=== PATIENT | female | born 1995 | race Asian ===

== ENCOUNTER 2016-08-31 20:00 | Emergency (ER) | payer BC ==
[2016-08-31 21:02] VITALS: BP 134/72
[2016-08-31] MEDS ORDERED: Acetaminophen TAB* 325 MG PO ONE (22:27)
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
== END 2016-08-31 23:15 | disposition short-term general hospital (02) ==
LOC: UCEAST 20:00
DX: S91.331A Puncture wound without foreign body, right foot, initial encounter (principal); E03.9 Hypothyroidism, unspecified; G43.909 Migraine, unspecified, not intractable, without status migrainosus; F33.9 Major depressive disorder, recurrent, unspecified; Z91.011 Allergy to milk products; Z91.013 Allergy to seafood
CPT/HCPCS: 99212; G0463

== ENCOUNTER 2016-08-31 22:57 | Emergency (ER) | payer BC ==
[2016-09-01 02:49] LABS: Hematocrit 42 % (35-47); Hemoglobin 13.9 g/dl (12.0-16.0); Mean Corpuscular HGB Conc 33 g/dl (31-36); Mean Corpuscular Hemoglobin 29 pg (27-31); Mean Corpuscular Volume 86 fL (80-97); Mean Platelet Volume 7 um3 (7.4-10.4); Red Blood Count 4.85 10^6/ul (4.0-5.4); Red Cell Distribution Width 13 % (10.5-15); White Blood Count 7.8 10^3/ul (3.5-10.8)
[2016-09-01 02:57] LABS: Add Diff/Slide Review? Slide Review Added; Comments Flag Yes
[2016-09-01 03:06] VITALS: BP 98/67
[2016-09-01 03:10] LABS: BUN/Creatinine Ratio 16.4 (8-20); Calcium 9.2 mg/dL (8.6-10.3); EGFR African American 142.9 (>60); EGFR Non-African American 111.1 (>60)
[2016-09-01 03:13] LABS: Potassium 3.9 mmol/L (3.5-5.0)
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
--- NOTE | 2016-09-01 07:50 | RAD ---
INDICATION: Foreign body. TECHNIQUE: 2 views of the left foot were obtained. FINDINGS: The bones are in normal alignment. No fracture or repeat foreign body is seen. Joint spaces appear maintained. IMPRESSION: NO RADIOPAQUE FOREIGN BODY IS SEEN.
== END 2016-09-01 03:24 | disposition home or self-care (01) ==
LOC: ED 22:57
DX: M79.672 Pain in left foot (principal)
CPT/HCPCS: 36415; 80048; 85025; 99282

== ENCOUNTER 2016-09-19 07:24 | Emergency (ER) | payer BC ==
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
[2016-09-19 07:52] VITALS: BP 116/67
[2016-09-19] MEDS ORDERED: Lidocaine 2% VISCOUS* 15 ML UDC PO ONE (08:32)
[2016-09-19 13:59] LABS: EBV Response YES
[2016-09-19 14:14] LABS: Mono Internal Control QC Line Present
== END 2016-09-19 08:50 | disposition home or self-care (01) ==
LOC: UCEAST 07:24
DX: J02.8 Acute pharyngitis due to other specified organisms (principal); B97.89 Other viral agents as the cause of diseases classified elsewhere
CPT/HCPCS: 36415; 86308; 86664; 86665; 87651; 99212; G0463

== ENCOUNTER 2016-11-13 18:33 | Emergency (ER) | payer BC ==
[2016-11-13 19:00] VITALS: BP 136/72
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
== END 2016-11-13 19:36 | disposition home or self-care (01) ==
LOC: UCEAST 18:33
DX: R30.0 Dysuria (principal); R35.0 Frequency of micturition; Z32.02 Encounter for pregnancy test, result negative; Z91.011 Allergy to milk products; Z91.013 Allergy to seafood
CPT/HCPCS: 81003; 84702; 87491; 87591; 99211; G0463

== ENCOUNTER → 2016-11-15 04:50 | Emergency (ER) | payer BC ==
[2016-11-15 05:14] LABS: Urine Bilirubin Negative (Negative); Urine Glucose Negative (Negative); Urine Nitrite Negative (Negative)
[2016-11-15 05:26] LABS: Manual Entry Verification CAR0052; UR Preg Internal Control QC Line Present; UR Preg Kit Lot# 6090065
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
[2016-11-15 06:06] VITALS: BP 109/75
== END | disposition home or self-care (01) ==
LOC: ED 04:50
DX: R35.0 Frequency of micturition (principal)
CPT/HCPCS: 81003; 81025; 99282

== ENCOUNTER 2017-06-18 15:34 | Emergency (ER) | payer BC ==
--- OUTSIDE RECORDS SUMMARY | 2017-06-18 15:40 | XMS REPORT ---
:1995 External Reference #:[id number] Author Organization [facility] Address [address] [place] [address] Phone [phone] Care Team Providers Name Role Phone HCP given Primary Care Physician Unavailable Payers Type Date Identification Numbers Payment Provider Subscriber Commercial Effective: Policy Number: Sara Barlow Peace 2016 [id number] Ind/Ppo/Hmo/Pos Kenn PayID: [id number] [address] [address] [place] [address] Problems Date Description Provider Status Onset: 06/23/2016 Dysthymia Armond Starks M.D. Active Onset: 06/23/2016 Fredo thyroiditis Armond Starks M.D. Active Family History Date Family Member(s) Problem(s) Comments Father Atrial Fibrillation Father Cancer Brain Siblings 1 Social History Type Date Description Comments Work Status Not Currently Working Cigarette Use Denies Cigarette Use ETOH Use Denies alcohol use Exercise Type/Frequency Does not exercise Seat Belt/Car Seat Seat Belt Use - Yes Smoke Alarms Yes smoke alarm Currently Active Patient is currently not sexually active Contraceptive Methods None Age 1st [place] 18 Years Old # Partners in a Lifetime over 10 Allergies, Adverse Reactions, Alerts Date Description Reaction Status Severity Comments 05/14/2016 NKDA active 07/11/2016 Scallops active Medications Medication Date Status Form Strength Qnty SIG Indications Ordering Provider Imiquimod 02/01 Active Cream 5% 1Box apply to B08.1 Adarsh affected adam Leahy every M.DJordan 2 days for up to 16 wks. apply before bed and wash off after 6-10hrs; for molluscum Sertraline HCL 07/12 Active Tablets 100mg 135ta 1.5 tablets F34.1 willard bs by mouth Armond every day M.D. for mood Levothyroxine 04/19 Active Tablets 75mcg 90tab take 1 E06.3 Silcolester, Sodium s tablet by Armond, mouth every M.D. morning on empty stomach; for thyroid Cyanocobalamin 04/17 Active Solution 1000mcg/M 1unit inject 1cc Silcolester L s intramuscul Armond, griselda monthly M.D. Amitriptyline HCL 04/13 Active Tablets 10mg 180ta 2 tablets G43.909 Raudel bs by mouth at Armond, bedtime; M.D. for migraine prevention Sulfamethoxazole/T 11/17 Hx Tablets 800-160mg 6tabs 1 by mouth R39.15 Raudel, rimethoprim twice a day Armond, - x3 days; M.D. 11/20 for possible urinary tract infection Medroxyprogesteron 07/05 Hx Tablets 10mg 10tab 1 by mouth N91.1 Raudel e Acetate s every day x Armond, - 10 days M.D. 07/15 Norgestim-Eth 07/02 Hx Tablets 0.18/0.21 28tab 1 tab by N91.2 Hektor, Estrad Triphasic 5/0.25 s mouth every EFFIE Dubois - mg-25 mcg day 11/16 Vitamin D3 06/23 Hx Capsules 2000Unit 1 by mouth E55.9 Raudel, every day Armond, - for vitamin M.D. 11/16 d deficiency Dicyclomine HCL 06/23 Hx Capsules 10mg 30cap 1-2 by R10.9 Raudel, s mouth three Armond, - times a day M.D. 07/11 as needed for abdominal pain Tamiflu 06/19 Hx Capsules 75mg 10cap take 1 J11.1 Sopchak s capsule by Hal, - mouth 2 D.O. 06/23 times per day for 5 days for flu Tamiflu 05/14 Hx Capsules 75mg 10cap take 1 J11.1 Sopchak, s capsule by Hal, - mouth 2 D.O. 05/19 times per day for 5 days for flu Sertraline HCL 05/09 Hx Tablets 100mg 90tab 1 tablet by F34.1 Raudel s mouth daily Alphonse Leahy M.D. 07/12 Immunizations CPT Code Status Date Vaccine Lot # [id number] Given 11/17/2016 Adacel or Boostrix, TDaP [id number] Given 11/17/2016 Influenza Virus Vaccine, Quadrivalent, Split, [id number] Preservative Free 22196 Given 02/04/2016 Gardasil 9 HPV vaccine; Nonavalent 3 [place] [address] Given 10/03/2013 Gardasil HPV vaccine 96037 Given 05/03/2013 Menactra Menningitis Vaccine 73135 Given 05/03/2013 Gardasil HPV vaccine 78544 Given 09/01/2007 Varicella (Chicken Pox) Immunization 60738 Given 11/18/2006 Menactra Menningitis Vaccine 81347 Given 11/18/2006 Adacel or Boostrix, TDaP 89600 Given 08/29/1998 Hep A, Ped/Adolscent, 2 Dose 48319 Given 02/08/1998 Hep A, Ped/Adolscent, 2 Dose 27277 Given 03/15/1996 Varicella (Chicken Pox) Immunization 88674 Given 1995 BCG Immunization Vital Signs Date Vital Result Comment 06/15/2017 BP Systolic 112 mmHg BP Diastolic 68 mmHg Body Temperature 98.0 F Weight 158.00 lb 11/17/2016 BP Systolic 106 mmHg BP Diastolic 70 mmHg Height 63 inches 5'3" Weight 154.00 lb BMI (Body Mass Index) 27.3 kg/m2 07/02/2016 BP Systolic 110 mmHg BP Diastolic 56 mmHg Weight 153.00 lb 06/23/2016 BP Systolic 110 mmHg BP Diastolic 74 mmHg Body Temperature 97.6 F Weight 151.00 lb 06/19/2016 BP Systolic 122 mmHg BP Diastolic 64 mmHg Body Temperature 98.0 F Weight 149.00 lb 05/14/2016 BP Systolic 116 mmHg BP Diastolic 78 mmHg Body Temperature 98.5 F Height 62.75 inches 5'2.75" Weight 152.00 lb w/coat BMI (Body Mass Index) 27.1 kg/m2 Results Test Date Test Result H/L Range Note Laboratory test 02/26/2017 TSH (Thyroid Stim 2.87 mcIU/mL 0.34-5.60 finding Horm) GC/Chlamydia 11/13/2016 Chlamydia trachomatis Negative Negative 1 Amplified Rna Rna Neisseria gonorrhoeae (GC) Rna Negative Negative 1 Laboratory test finding 09/19/2016 Monospot Negative Negative 2, 3 Rik Warner Comprehensive 09/19/2016 Ebv Capsid Ag IgG Ab Positive Negative 2 Ebv Capsid Ag IgM Ab Negative Negative 2 Rik-Warner Nuclear Antigen Positive Negative 2 Rik-Warner Virus Interp See Comment 2, 4 Laboratory test finding 09/19/2016 Rapid Strep Molecular Negative Negative 5 CBC Auto Diff 09/01/2016 White Blood Count 7.8 10^3/uL 3.5-10.8 Red Blood Count 4.85 10^6/uL 4.0-5.4 Hemoglobin 13.9 g/dL 12.0-16.0 Hematocrit 42 % 35-47 Mean Corpuscular Volume 86 fL 80-97 Mean Corpuscular Hemoglobin 29 pg 27-31 Mean Corpuscular HGB Conc 33 g/dL 31-36 Red Cell Distribution Width 13 % 10.5-15 Platelet Count 269 10^3/uL 150-450 Mean Platelet Volume 7 um3 Low 7.4-10.4 Abs Neutrophils 4.8 10^3/uL 1.5-7.7 Abs Lymphocytes 1.8 10^3/uL 1.0-4.8 Abs Monocytes 0.7 10^3/uL 0-0.8 Abs Eosinophils 0.4 10^3/uL 0-0.6 Abs Basophils 0.1 10^3/uL 0-0.2 Abs Nucleated RBC 0.01 10^3/uL Granulocyte % 61.7 % 38-83 Lymphocyte % 23.3 % Low 25-47 Monocyte % 9.1 % High 1-9 Eosinophil % 4.8 % 0-6 Basophil % 1.1 % 0-2 Nucleated Red Blood Cells % 0.1 Basic Metabolic Panel 09/01/2016 Sodium 138 mmol/L 133-145 Chloride 103 mmol/L 101-111 Co2 Carbon Dioxide 25 mmol/L 22-32 Glucose 92 mg/dL 70-100 Blood Urea Nitrogen 11 mg/dL 6-24 Creatinine 0.67 mg/dL 0.51-0.95 BUN/Creatinine Ratio 16.4 8-20 Calcium 9.2 mg/dL 8.6-10.3 Egfr Non- 111.1 >60 Egfr 142.9 >60 6 Potassium 3.9 mmol/L 3.5-5.0 Anion Gap 10 mmol/L 2-11 Laboratory test finding 07/02/2016 Estradiol 89 pg/mL 7 FSH (Follicle Stim Hormone) 1.6 mIU/mL 8 LH (Lutenizing Hormone) 1.0 mcIU/mL 9 Progesterone 8.1 ng/mL 10 Prolactin 9.8 ng/mL 1.0-25.0 Laboratory test finding 06/23/2016 Test Urine negative CBC Auto Diff 06/20/2016 White Blood Count 6.4 10^3/uL 3.5-10.8 Red Blood Count 5.24 10^6/uL 4.0-5.4 Hemoglobin 15.0 g/dL 12.0-16.0 Hematocrit 45 % 35-47 Mean Corpuscular Volume 87 fL 80-97 Mean Corpuscular Hemoglobin 29 pg 27-31 Mean Corpuscular HGB Conc 33 g/dL 31-36 Red Cell Distribution Width 13 % 10.5-15 Platelet Count 289 10^3/uL 150-450 Mean Platelet Volume 7 um3 Low 7.4-10.4 Abs Neutrophils 4.3 10^3/uL 1.5-7.7 Abs Lymphocytes 1.3 10^3/uL 1.0-4.8 Abs Monocytes 0.6 10^3/uL 0-0.8 Abs Eosinophils 0.2 10^3/uL 0-0.6 Abs Basophils 0.1 10^3/uL 0-0.2 Abs Nucleated RBC 0 10^3/uL Granulocyte % 67.4 % 38-83 Lymphocyte % 20.4 % Low 25-47 Monocyte % 8.6 % 1-9 Eosinophil % 2.8 % 0-6 Basophil % 0.8 % 0-2 Nucleated Red Blood Cells % 0 Comp Metabolic Panel 06/20/2016 Sodium 138 mmol/L 133-145 Potassium 4.1 mmol/L 3.5-5.0 Chloride 100 mmol/L Low 101-111 Co2 Carbon Dioxide 28 mmol/L 22-32 Anion Gap 10 mmol/L 2-11 Glucose 76 mg/dL 70-100 Blood Urea Nitrogen 10 mg/dL 6-24 Creatinine 0.73 mg/dL 0.51-0.95 BUN/Creatinine Ratio 13.7 8-20 Calcium 10.0 mg/dL 8.6-10.3 Total Protein 7.4 g/dL 6.4-8.9 Albumin 4.8 g/dL 3.2-5.2 Globulin 2.6 g/dL 2-4 Albumin/Globulin Ratio 1.8 1-3 Total Bilirubin 0.60 mg/dL 0.2-1.0 Alkaline Phosphatase 52 U/L 34-104 Alt 25 U/L 7-52 Ast 20 U/L 13-39 Egfr Non- 100.6 >60 Egfr 129.4 >60 11 Laboratory test finding 06/20/2016 Vitamin B12 620 pg/mL 180-914 12 Vitamin D Total 25(Oh) 20.1 ng/mL Low 30-50 C Reactive Protein 1.95 mg/L < 5.00 13 Erythrocyte Sed Rate 10 mm/Hr 0-14 CMV Igg/Igm 06/20/2016 Cytomegalovirus IgG Antibody Negative Negative 14 Cytomegalovirus IgM Antibody Negative Negative Rik Warner Comprehensive 06/20/2016 Ebv Capsid Ag IgG Ab Positive Negative Ebv Capsid Ag IgM Ab Negative Negative Rik-Warner Nuclear Antigen Positive Negative Rik-Warner Virus Interp See Comment 15 Laboratory test 06/20/2016 Folic Acid (Folate) > 20.00 ng/mL >3.99 finding HIV 1/2 AB Evaluation 06/20/2016 HIV 1 2 Antibody Nonreactive Nonreactive 16 Laboratory test 06/20/2016 TSH (Thyroid Stim 1.80 mcIU/mL 0.34-5.60 finding Horm) Rapid Influenza A 05/14/2016 Influenza A NEGATIVE Negative 17 & B Molecular Molecular Influenza B Molecular NEGATIVE Negative Laboratory test finding 05/14/2016 Influenza A & B SEE RESULT BELOW 18 Request 1 [id number] Would you like an EBV if Monospot is Negative?: Y 4 RESULT: Results suggest past infection. ADDITIONAL INFORMATION In most populations, at least 90% of the adult population will have been infected with EBV sometime in the past and therefore, will be positive for anti-VCA/IgG and anti- EBNA. Antibodies to EBNA develop 6-8 weeks after primary infection and remain present for life. Presence of VCA/ IgM antibodies indicates recent primary infection with EBV. Test Performed by: [facility] - [address] [address] 5 Harvest Contractor: [id number] Because ethnic data is not always readily available, this report includes an eGFR for both -Americans and non- Americans. The National Kidney Disease Education Program (NKDEP) does not endorse the use of the MDRD equation for patients that are not between the ages of 18 and 70, are , have extremes of body size, muscle mass, or nutritional status, or are non- or non-. According to the National Kidney Foundation, irrespective of diagnosis, the stage of the disease is based on the level of kidney function: Stage Description GFR(mL/min/1.73 m(2)) 1 Kidney damage with normal or decreased GFR 90 2 Kidney damage with mild decrease in GFR 60-89 3 Moderate decrease in GFR 30-59 4 Severe decrease in GFR 15-29 5 Kidney failure <15 (or dialysis) 7 Estradiols <40 pg/mL are sent to a reference lab for low range testing. Postmenopausal Females < 20 Ovulating females: by day in cycle relative to LH Peak Follicular phase - 12 10-50 - 4 60-200 Mid-cycle - 1 120-375 Luteal phase + 2 50-155 + 6 60-260 + 12 15-115 8 Normally menstruating females - Follicular phase 3 - 9 - Mid-cycle peak 4 - 23 - Luteal phase 1 - 6 Postmenopausal females 16 - 114 9 Normally menstruating females - Follicular Phase 1 - 18 - Mid-Cycle Peak 24 - 105 - Luteal Phase 0.6 - 20 Postmenopausal females 15 - 62 10 Female reference ranges for Progesterone: Follicular phase.......0.3 - 1.5 ng/ml Mid-luteal phase.......5.2 - 18.5 ng/ml Postmenopausal.........< 0.8 ng/ml 1st trimester.........4.7 - 50.0 ng/ml 2nd trimester.........19.4 - 45.3 ng/ml 11 Because ethnic data is not always readily available, this report includes an eGFR for both -Americans and non- Americans. The National Kidney Disease Education Program (NKDEP) does not endorse the use of the MDRD equation for patients that are not between the ages of 18 and 70, are , have extremes of body size, muscle mass, or nutritional status, or are non- or non-. According to the National Kidney Foundation, irrespective of diagnosis, the stage of the disease is based on the level of kidney function: Stage Description GFR(mL/min/1.73 m(2)) 1 Kidney damage with normal or decreased GFR 90 2 Kidney damage with mild decrease in GFR 60-89 3 Moderate decrease in GFR 30-59 4 Severe decrease in GFR 15-29 5 Kidney failure <15 (or dialysis) 12 Normal Range 180 to 914 Indeterminate Range 145 to 180 Deficient Range <145 13 Acute inflammation: >10.00 14 Test Performed by: [place] [address] 15 RESULT: Results suggest past infection. ADDITIONAL INFORMATION In most populations, at least 90% of the adult population will have been infected with EBV sometime in the past and therefore, will be positive for anti-VCA/IgG and anti- EBNA. Antibodies to EBNA develop 6-8 weeks after primary infection and remain present for life. Presence of VCA/ IgM antibodies indicates recent primary infection with EBV. Test Performed by: [facility] [place] [address] 16 It is recognized that currently available assays for the detection of antibodies to HIV-1 and/or HIV-2 may not detect all infected individuals. HIV antibodies may be undetectable in some stages of the infection and in some clinical conditions. The performance of this assay has not been established for populations of infants or children. Assayed by Chemiluminescence Microparticle Immunoassay on the Siemens Advia Centaur CP. Values obtained with different methods or kits cannot be used interchangeably.The diagnostic specificity of the ADVIA Centaur 1/O/2 Enhanced assay in the low risk population was 99.90% (6052/6058) with a 95% confidence interval of 99.78 to 99.96%. 17 Harvest Contractor: ROSARIO MOSELEY 18 SEE RESULT BELOW Name: MIS HAWK : [address]: Hal Escobar DO Acct: [id number] Unit: [id number] AGE: 21 Location: [facility] Re05/14/16 SEX: F Status: REG REF SPEC: [id number] MYRTLE: 05/14/16-[address] [facility] [address]: Hla Escobar DO REQ: [id number] RECD: 05/14/16 STATUS: COMP _ SOURCE: [facility]: ORDERED: Flu A B Request COMMENTS: [id number] Procedure Result Reported Site Rapid Influenza A B Request Final 05/14/16- 2113 ML Specimen received for Influenza A/B Molecular testing * ML - MAIN LAB ([facility]) . END OF REPORT * ML=Testing performed at Main Lab DEPARTMENT OF PATHOLOGY, [address] [place] [address] Nathan Rodríguez M.D. Director [facility] # [id number] Procedures Description No Information Encounters Type Date Location Provider CPT E/M Dx Office Visit 06/15/2017 11:15a Main Office Armond Starks M.D. 96401 M26.602 J06.9 S93.402A Office Visit 11/17/2016 3:00p Main Office Armond Starks M.D. 51763 R39.15 R35.0 Z23 Z41.8 Office Visit 07/02/2016 1:55p [place] [address] N91.2 K58.8 Office Visit 06/23/2016 2:45p Main Office Armond Starks M.D. 00723 N91.2 R10.9 F34.1 E55.9 E06.3 Office Visit 06/19/2016 4:00p Main Office Hal Escobar D.O. 27737 J11.1 R53.83 N91.2 Office Visit 05/14/2016 2:00p Main Office Hal Escobar D.O. 93029 J11.1 Plan of Care 06/15/2017 - Armond Starks M.D.M26.602 Left temporomandibular joint disorder , unspecifiedComments:Counseled re Dx. Advised to avoid foods wc require repetitive or forceful chewing (prefer soft diet), avoid opening mouth wide, take Ibuprofen or Aleve prn, ice the area intermittently prn. RTO prn if persistentFollow up:Try taking Ibuprofen 600mg 3x/day or Aleve (Naproxen) 440mg 2x/day, as needed to help with your jaw painJ06.9 Acute upper respiratory infection, unspecifiedComments:appears viral. Observe for now w/ supportive care. RTO prn.S93.402A Sprain of unspecified ligament of left ankle, init encntrComments:Resolving. Advised to do balance exercises.
[2017-06-18 15:47] VITALS: BP 130/77
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
== END 2017-06-18 16:20 | disposition home or self-care (01) ==
LOC: UCEAST 15:34
DX: H66.92 Otitis media, unspecified, left ear (principal); J01.90 Acute sinusitis, unspecified; B96.89 Other specified bacterial agents as the cause of diseases classified elsewhere
CPT/HCPCS: 99212; G0463

== ENCOUNTER 2017-06-25 16:40 | Emergency (ER) | payer BC ==
[2017-06-25 17:26] VITALS: BP 136/85
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
--- NOTE | 2017-06-25 18:07 | RAD ---
HISTORY: Cough COMPARISONS: None VIEWS: 4: Frontal dual-energy and lateral views of the chest. FINDINGS: CARDIOMEDIASTINAL SILHOUETTE: The cardiomediastinal silhouette is normal. GIANLUCA: The gianluca are normal. PLEURA: The costophrenic angles are sharp. No pleural abnormalities are noted. LUNG PARENCHYMA: The lungs are clear. ABDOMEN: The upper abdomen is clear. There is no subphrenic gas. BONES AND SOFT TISSUES: No bone or soft tissue abnormalities are noted. OTHER: None. IMPRESSION: NO ACTIVE CARDIOPULMONARY DISEASE.
== END 2017-06-25 18:22 | disposition home or self-care (01) ==
LOC: UCEAST 16:40
DX: J34.9 Unspecified disorder of nose and nasal sinuses (principal); E03.9 Hypothyroidism, unspecified; F41.9 Anxiety disorder, unspecified; F32.9 Major depressive disorder, single episode, unspecified
CPT/HCPCS: 71046; 87502; 99212; G0463

== ENCOUNTER 2017-10-31 16:23 | Emergency (ER) | payer BC ==
[2017-10-31 16:39] VITALS: BP 114/81
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
[2017-10-31] MEDS ORDERED: Nitrofurantoin Macrocrystals* 50 MG CAP PO ONE (17:31)
--- NOTE | 2017-11-02 15:21 | UC ---
- Progress Note Progress Note: notify pt no UTI stop antibiotic recheck if still symptomatic Discharge - Sign-Out/Discharge Documenting (check all that apply): Post-Discharge Follow Up - Discharge Plan Condition: Stable Disposition: HOME Prescriptions: Nitrofurantoin Monohyd/M-Cryst [Macrobid 100 mg Capsule] 100 mg PO BID 5 Days # 10 cap Patient Education Materials: Urinary Tract Infection in Women (ED) Referrals: Armond Starks MD [Primary Care Provider] - 1 Week Additional Instructions: Please start taking the medication as prescribed to the pharmacy . Follow up with your primary care doctor in 1 week. Return to Urgent care / ER if symptoms get worse. - Billing Disposition and Condition Condition: STABLE Disposition: Home
== END 2017-10-31 17:45 | disposition home or self-care (01) ==
LOC: UCEAST 16:23
DX: N39.0 Urinary tract infection, site not specified (principal); Z91.011 Allergy to milk products; Z91.013 Allergy to seafood; Z91.09 Other allergy status, other than to drugs and biological substances
CPT/HCPCS: 81003; 87086; 99212; A9270-GY; G0463

== ENCOUNTER 2019-01-25 17:57 | Emergency (ER) | payer BC ==
[2019-01-25] MEDS ORDERED: Ondansetron ODT TAB* 4 MG PO ONE (20:14)
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
[2019-01-25 20:33] LABS: Influenza A Molecular NEGATIVE (Negative); Influenza B Molecular NEGATIVE (Negative)
[2019-01-25 20:47] VITALS: BP 120/81
== END 2019-01-25 20:51 | disposition home or self-care (01) ==
LOC: UCEAST 17:57
DX: R19.7 Diarrhea, unspecified (principal); R10.9 Unspecified abdominal pain; R11.0 Nausea; R50.9 Fever, unspecified; Z91.09 Other allergy status, other than to drugs and biological substances; Z91.018 Allergy to other foods
CPT/HCPCS: 99212; A9270-GY; G0463